=== PATIENT | female | born 1985 | race African-American/Black ===

== ENCOUNTER 2022-11-12 08:39 | Emergency (ER) | payer BC ==
[2022-11-12] MEDS ORDERED: Dexamethasone 4 MG TAB ONE (09:09)
== END 2022-11-12 09:35 | disposition home or self-care (01) ==
LOC: MADERS 08:39
DX: J03.90 Acute tonsillitis, unspecified (principal); I10 Essential (primary) hypertension
CPT/HCPCS: 87081; 87430; 99283; J8540